=== PATIENT | female | born 1940 | race Caucasian/White ===

== ENCOUNTER 2018-02-17 07:17 | Day surgery (SDC) | payer MEDICARE ==
[~2018-02-17] VITALS: Ht 154.9 cm; Wt 65.4 kg
[~2018-02-17 07:17] MED LIST: AMLO5; ASPI81CH; BISHYD10 PO; BISHYD2.5 PO; BISHYD5 PO; CITA20 PO; Cleocin HCl300 MG PO; ERGO400 PO; ESTRADIOL; FAMO20 PO; FISH1000 PO; LEVSOD88 PO; LORA.5 PO; MULTIVITAMIN PO; PRAV20 PO; SUCR1 PO; UBID10 PO; ZESTORETIC 20-121 EA; [UNRECOGNIZED DRUG - OTHER]
[2018-02-17] MEDS ORDERED: Bisoprolol Fumar5 MG (08:13)
== END 2018-02-17 09:52 | disposition home or self-care (01) ==
LOC: ORSCSDS 07:17
PROVIDERS: Internal Medicine Gastroenterology
PROC: 0DBN8ZX Excision of Sigmoid Colon, Via Natural or Artificial Opening Endoscopic, Diagnostic (ICD-10-PCS; principal; 2018-02-17 09:00)
DX: Z12.11 Encounter for screening for malignant neoplasm of colon (principal); Z86.010 Personal history of colon polyps; K57.30 Diverticulosis of large intestine without perforation or abscess without bleeding; I10 Essential (primary) hypertension; Z87.891 Personal history of nicotine dependence
CPT/HCPCS: 88305; J0330; J1980; J2405; J7120

== ENCOUNTER → 2018-12-09 | Outpatient (CLI) | payer MEDICARE ==
[~2018-12-09] MED LIST changes: +Bisoprolol Fumar5 MG
== END | disposition home or self-care (01) ==
LOC: LAB SHORT 09:23 → PLD 09:23
DX: C44.311 Basal cell carcinoma of skin of nose (principal)
CPT/HCPCS: 88305

== ENCOUNTER → 2019-01-01 | Outpatient (CLI) | payer MEDICARE | END | disposition home or self-care (01) | LOC: LAB SHORT 11:16 → PLD 11:16 | DX: D48.5 Neoplasm of uncertain behavior of skin (principal) | CPT/HCPCS: 88305 ==

== ENCOUNTER → 2019-02-19 | Outpatient (CLI) | payer MEDICARE | END | disposition home or self-care (01) | LOC: LAB 14:08 → LAB SHORT 14:08 | DX: L08.0 Pyoderma (principal) | CPT/HCPCS: 87070 ==

== ENCOUNTER → 2019-12-28 | Outpatient (CLI) | payer MEDICARE, OTHER | END | disposition home or self-care (01) | LOC: PLD 08:23 → LAB SHORT 08:23 | DX: D48.5 Neoplasm of uncertain behavior of skin (principal) | CPT/HCPCS: 88305 ==

== ENCOUNTER → 2020-08-11 | Outpatient (CLI) | payer MEDICARE, OTHER | LOC: LAB 08:05 → LAB SHORT 08:05 | DX: D22.39 Melanocytic nevi of other parts of face (principal) | CPT/HCPCS: 88305 ==

== ENCOUNTER → 2023-02-19 | Outpatient (CLI) | payer MEDICARE, OTHER | LOC: LAB SHORT 12:10 → LAB 12:10 → PLD 12:10 | DX: D23.39 Other benign neoplasm of skin of other parts of face (principal) | CPT/HCPCS: 88305 ==

== ENCOUNTER 2025-02-20 17:20 | Emergency (ER) | payer MEDICARE, OTHER ==
[~2025-02-20] VITALS: Ht 154.9 cm; Wt 64.9 kg
[~2025-02-20 17:20] MED LIST changes: -AMLO5; +AMLO5 PO; +BISOPROLOL-HCT1 EAC1; +CITALOPRAM HBR10 MG PO; +LEVSOD100 PO; +POTA10T PO; +Vitamin B-12100 MCG PO
[2025-02-20 17:23] VITALS: BP 174/63
[2025-02-20] MEDS ORDERED: Methyl Salicylate/Menth/Camph 57 GM TUBE TOP ONE (18:35)
[2025-02-20] MEDS ORDERED: Robaxin750 MG PO (18:42)
== END 2025-02-20 18:45 | disposition home or self-care (01) ==
LOC: ER 17:20
DX: M54.50 Low back pain, unspecified (principal); G89.29 Other chronic pain; I10 Essential (primary) hypertension; Z87.891 Personal history of nicotine dependence; Z86.73 Personal history of transient ischemic attack (TIA), and cerebral infarction without residual deficits; Z79.82 Long term (current) use of aspirin; Z88.0 Allergy status to penicillin; Z88.5 Allergy status to narcotic agent; Z88.1 Allergy status to other antibiotic agents; Z88.8 Allergy status to other drugs, medicaments and biological substances
CPT/HCPCS: 99283; A9270

== ENCOUNTER 2025-03-29 20:25 | Emergency (ER) | payer MEDICARE, OTHER ==
[~2025-03-29] VITALS: Ht 154.9 cm; Wt 64.9 kg
[~2025-03-29 20:25] MED LIST changes: +Robaxin750 MG PO
[2025-03-29 20:35] VITALS: BP 140/60
== END 2025-03-30 01:46 | disposition home or self-care (01) ==
LOC: ER 20:25
DX: S61.210A Laceration without foreign body of right index finger without damage to nail, initial encounter (principal); Z88.0 Allergy status to penicillin; Z88.5 Allergy status to narcotic agent; Z79.82 Long term (current) use of aspirin; Z79.899 Other long term (current) drug therapy; W26.0XXA Contact with knife, initial encounter
CPT/HCPCS: 12001; 90471; 90715; 99282-25

== ENCOUNTER → 2025-05-03 | Outpatient (CLI) | payer MEDICARE, OTHER | LOC: LAB 15:05 → LAB SHORT 15:05 | DX: R82.998 Other abnormal findings in urine (principal) | CPT/HCPCS: 87086 ==

== ENCOUNTER 2025-05-17 04:07 | Emergency (ER) | payer MEDICARE, OTHER ==
[~2025-05-17] VITALS: Ht 154.9 cm; Wt 65.3 kg
[2025-05-17 05:25] LABS: Alanine Aminotransfer (ALT/SGP 37.0 U/L (12-78); Albumin, Blood 4.1 g/dL (3.4-5.0); Albumin/Globulin Ratio 1.1 (0.8-1.8); Anion Gap 9.0 mmol/L (3-11); Aspartate Aminotrans (AST/SGOT 55.0 U/L (12-37); Bilirubin, Total 0.8 mg/dL (0.1-1.0); Blood Urea Nitrogen 23.0 mg/dL (8-24); CO2, Blood 25.0 mmol/L (21-32); Calcium, Blood 8.7 mg/dL (8.5-10.1); Chloride, Blood 105.0 mmol/L (98-108); Creatinine, Blood 0.79 mg/dL (0.40-1.00); Globulin, Blood 3.8 g/dL (2.2-4.0); Glucose, Blood 128.0 mg/dL (70-99); Potassium, Blood 5.0 mmol/L (3.5-5.5); Sodium, Blood 134.0 mmol/L (136-145); Total Protein, Blood 7.9 g/dL (6.4-8.2)
[2025-05-17 05:28] LABS: BASOPHILS ABSOLUTE AUTO 0.05 K/mm3 (0.00-0.23); BASOPHILS PERCENT AUTO 1 % (0-2); EOSINOPHILS ABSOLUTE AUTO 0.20 K/mm3 (0.00-0.68); EOSINOPHILS PERCENT AUTO 4 % (0-6); Hematocrit 42.3 % (33.0-51.0); Hemoglobin 14.6 g/dL (11.5-16.0); IMMATURE GRAN ABSOLUTE AUTO 0.02 K/mm3 (0.00-0.10); IMMATURE GRAN PERCENT AUTO 0 % (0-1); LYMPHOCYTES ABSOLUTE AUTO 0.98 K/mm3 (0.84-5.20); LYMPHOCYTES PERCENT AUTO 17 % (21-46); MONOCYTES ABSOLUTE AUTO 0.51 K/mm3 (0.16-1.47); MONOCYTES PERCENT AUTO 9 % (4-13); Mean Corpuscular HGB Conc 34.5 g/dL (31.5-36.5); Mean Corpuscular Volume 89 fL (80-100); NEUTROPHILS ABSOLUTE AUTO 3.90 K/mm3 (1.96-9.15); NEUTROPHILS PERCENT AUTO 69 % (41-73); NRBC ABSOLUTE 0.00 K/mm3 (0.00-0.02); NRBC Auto 0.0 /100 WBC (0.0-0.2); RDW Coefficient Variation 13.4 % (11.7-14.2); RDW Standard Deviation 43.7 fL (35.1-46.3)
[2025-05-17] MEDS ORDERED: Ondansetron HCl 2 MG / ML 2ML Vial IV ONE (07:00)
[2025-05-17 08:07] VITALS: BP 168/71
[2025-05-17 08:24] LABS: Source, Urine Clean Catch
[2025-05-17 08:32] LABS: Platelet Count 150 K/mm3 (150-400)
[2025-05-17 08:35] LABS: Bilirubin, Urine Neg (Neg); Glucose Qualitative, Urine Neg (Neg); Ketones, Urine Neg (Neg); Leukocyte Esterase, Urine 2+ (Neg); Protein, Urine 2+ (Neg); Specific Gravity, Urine 1.010 (1.003-1.022); Urobilinogen, Urine NORM (Normal)
[2025-05-17 08:39] LABS: Color, Urine Pale Yellow (P-Yellow)
== END 2025-05-17 09:23 | disposition home or self-care (01) ==
LOC: ER 04:07
PROVIDERS: Emergency Medicine; Physician Assistant
DX: R42 Dizziness and giddiness (principal); R11.0 Nausea; I10 Essential (primary) hypertension; E78.5 Hyperlipidemia, unspecified; Z86.73 Personal history of transient ischemic attack (TIA), and cerebral infarction without residual deficits; Z87.891 Personal history of nicotine dependence; Z88.0 Allergy status to penicillin; Z88.5 Allergy status to narcotic agent; Z88.1 Allergy status to other antibiotic agents; Z88.8 Allergy status to other drugs, medicaments and biological substances; Z79.82 Long term (current) use of aspirin; Z79.890 Hormone replacement therapy; Z79.899 Other long term (current) drug therapy
CPT/HCPCS: 80053; 81001; 84484; 85025; 85049; 87086; 93005; 93010; 96374; 99284-25; A9270; J2405